=== PATIENT | female | born 1980 | race Caucasian/White ===

== ENCOUNTER 2018-04-04 22:02 | Inpatient (IN) | payer BC ==
[~2018-04-04] VITALS: Wt 68.2 kg
[2018-04-04 23:09] LABS: BASO % 0.2 % (0.0-2.0); EOS % 0.2 % (0-4.0); GRAN # 8.7 (1.4-6.5); GRAN % 74.7 % (42.2-75.2); HEMOGLOBIN 11.6 g/dl (12.5-16.0); LYMPH % 17.2 % (20.0-51.0); MEAN CELL VOLUME 98 fl (80.0-100.0); MEAN CORPUSCULAR HEMOGLOBIN 32 pg (27.0-31.0); MEAN CORPUSCULAR HGB CONC 32 g/dl (33.0-37.0); MEAN PLATELET VOLUME 12.5 fl (7.4-10.4); MONO # 0.8 (0.1-0.6); MONO % 7.2 % (1.7-9.3); PLATELET COUNT 138 K/mm3 (130-400); RED BLOOD COUNT 3.66 M/mm3 (4.10-5.30); REDCELL DISTRIBUTION WIDTH-CV 14.2 % (11.5-14.5)
[2018-04-04 23:13] VITALS: BP 112/88; PULSE 88; TEMP 98.2
[2018-04-04 23:15] VITALS: BP 120/59; PULSE 110
[2018-04-04 23:30] VITALS: BP 105/52; PULSE 106
[2018-04-04 23:45] VITALS: BP 113/58; PULSE 93
[2018-04-05] VITALS (14 sets, daily range): BP systolic 102–222; BP diastolic 56–67; PULSE 55–106; TEMP 97.7–98.2
[2018-04-05] MEDS ORDERED: PRENATAL MVI (05:26)
[2018-04-05] MEDS ORDERED: TIROSINT75 MC1 PO (05:26)
[2018-04-06 07:45] VITALS: BP 101/58; PULSE 77; TEMP 98
== END 2018-04-06 11:45 | disposition home or self-care (01) | DRG 774 ==
LOC: LDRO 22:02 → LDR 22:27 → OB 22:27
PROVIDERS: Student in an Organized Health Care Education/Training Program
PROC: 10E0XZZ Delivery of Products of Conception, External Approach (ICD-10-PCS; principal; 2018-04-05)
PROC: 0HQ9XZZ Repair Perineum Skin, External Approach (ICD-10-PCS; 2018-04-05)
DX: O70.0 First degree perineal laceration during delivery (principal); O99.42 Diseases of the circulatory system complicating childbirth; Z3A.39 39 weeks gestation of pregnancy; Z37.0 Single live birth; I34.1 Nonrheumatic mitral (valve) prolapse; O99.284 Endocrine, nutritional and metabolic diseases complicating childbirth; E03.9 Hypothyroidism, unspecified; O99.02 Anemia complicating childbirth; D64.9 Anemia, unspecified
CPT/HCPCS: J2590; J7120

== ENCOUNTER → 2019-03-29 | Outpatient (CLI) | payer OTHER ==
[~2019-03-29] MED LIST: PRENATAL MVI; TIROSINT75 MC1 PO
== END ==
LOC: MC.RAD 14:00
DX: N63.10 Unspecified lump in the right breast, unspecified quadrant (principal)

== ENCOUNTER → 2019-10-18 | Outpatient (CLI) | payer BC | LOC: MC.RAD 09:08 | DX: N63.10 Unspecified lump in the right breast, unspecified quadrant (principal) ==

== ENCOUNTER → 2020-03-05 | Outpatient (CLI) | payer BC ==
[~2020-03-05] MED LIST changes: +B COMPLEX #11 TA1 PO; +IBU600 MG PO; +SLOW FE142 MG PO; +TIROSINT100 MC1 PO
== END ==
LOC: COL.LAB 07:07
DX: O09.523 Supervision of elderly multigravida, third trimester (principal); Z3A.39 39 weeks gestation of pregnancy; Z20.828 Contact with and (suspected) exposure to other viral communicable diseases

== ENCOUNTER 2020-03-11 07:07 | Inpatient (IN) | payer BC ==
[~2020-03-11] VITALS: Ht 172.7 cm; Wt 64.1 kg
[2020-03-11] VITALS (28 sets, daily range): BP systolic 87–124; BP diastolic 39–68; PULSE 66–103; TEMP 97.3–98.6
[~2020-03-11 07:07] MED LIST changes: -B COMPLEX #11 TA1 PO; -IBU600 MG PO; -SLOW FE142 MG PO; -TIROSINT100 MC1 PO
[2020-03-11] MEDS ORDERED: B COMPLEX #11 TA1 PO (07:17)
[2020-03-11] MEDS ORDERED: SLOW FE142 MG PO (08:33)
[2020-03-11] MEDS ORDERED: TIROSINT100 MC1 PO (08:33)
[2020-03-11 08:51] LABS: BASO % 0.5 % (0.0-2.0); EOS % 0.3 % (0-4.0); GRAN # 3.9 (1.4-6.5); GRAN % 64.4 % (42.2-75.2); HEMOGLOBIN 11.4 g/dl (12.5-16.0); LYMPH # 1.6 (1.2-3.4); LYMPH % 25.9 % (20.0-51.0); MEAN CELL VOLUME 101 fl (80.0-100.0); MEAN CORPUSCULAR HEMOGLOBIN 33 pg (27.0-31.0); MEAN CORPUSCULAR HGB CONC 33 g/dl (33.0-37.0); MONO # 0.5 (0.1-0.6); MONO % 8.2 % (1.7-9.3); PLATELET COUNT 134 K/mm3 (130-400); RED BLOOD COUNT 3.43 M/mm3 (4.10-5.30); REDCELL DISTRIBUTION WIDTH-CV 13.3 % (11.5-14.5)
--- NOTE | 2020-03-11 09:18 | NUR ---
Pt and spouse arrive ambulatory to unit at 0713 for scheduled induction of labor. Pt anxious but appropriate, denies leaking of fluid, vaginal bleeding, contractions, and reports good movement. EFM explained and placed, vitals taken. IV started in left forearm, LR started per protocol. Assessment complete, consents discussed and signed. Plan of care discussed. 0800 - Pitocin started per induction protocol. 08 - Dr. Alexander to pt bedside. Plan of care discussed with pt. FHT reviewed. 08 - SVE per Dr. Alexander /-2. AROM at this time, trickle of clear fluid noted. Plan to continue induction as planned.
[2020-03-11 10:22] LABS: HEMATOCRIT 34.5 % (37.0-47.0)
--- NOTE | 2020-03-11 11:12 | NUR ---
1105 - Pt feeling contractions, but states that they are not painful. Pt reports feeling pressure with contractions. SVE /-2, very posterior. Pt repositioned for comfort, warm blanket provided.
--- NOTE | 2020-03-11 11:50 | NUR ---
Pt requesting epidural. Zacarias Jernigan CRNA notified.
--- NOTE | 2020-03-11 11:57 | NUR ---
Zacarias Jernigan CRNA to pt bedside. Pt positioned at side of bed for epidural. SS given at 1205, pt repositioned for comfort. Pt tolerated well.
--- NOTE | 2020-03-11 13:39 | NUR ---
1218 - Pt states she is feeling increased pressure, intermittent variable decelerations with contractions noted. SVE 6-7/90/0. Dr. Alexander notified at 1222. Pt repositioned WL at 1223 for comfort. 1227 - Late deceleration noted with contraction, FHT tracing intermittently. RN to bedside. Pt states at this time she is feeling "a lot of pressure down there and it feels like something is coming out." 1231 - Pt repositioned for SVE. When knees opened, bulging bag noted at vaginal opening. SVE 10/100/+1. Pt repositioned WL with knees together. Pitocin stopped, Dr. Alexander notified at 1232. RN remains at bedside. Hermann King RN of nursery notified, Jules Medina RN notified, Jules Manley, TRENT at bedside. Pt kept calm, encouraged breathing through contractions. 1235 - Pt states she feels more "coming out". Right knee pulled slightly aside, very bulging bag noted coming out of vaginal opening. Pt encouraged to keep knees together and keep breathing through contractions. FHT WHL. 1238 - Pt states she "feels baby coming out". Knees pulled gently aside, head noted at vaginal opening en caul. Head continues coming out with contractions. Sterile gloves donned, head eased out en caul. Pt encouraged to push, rest of delivered with push. BOW ruptures when infant delivered at 1240. Membranes removed from , bulb suction used to remove fluids from mouth and nose and stimulated to cry. Infant wrapped in blankets and placed on mother's abdomen. Care of transferred to Hermann King RN of nursery. At 1242, cord clamped at umbilicus and 1 in away with pean clamp. Father cut cord. Clamped umbilical cord placed on bed. Pt positioned for comfort. 1242 - Dr. Alexander notified of delivery by Jules Medina, FLACA 1248 - Dr. Alexander to pt bedside. Pt legs placed in stirrups, bed broken down. Placenta delivered spontaneously at [address] Alexander, pitocin started per protocol. Superficial perineal laceration repaired by physician. Red robbin used to drain bladder. Pericare provided, pt repositioned for comfort. Ice pack placed on perineum, clean gown and warm blankets provided. Cord blood collected. See physician notes.
--- NOTE | 2020-03-11 15:26 | NUR ---
1510 - Pt up to side of bed, epidural catheter removed. Pt ambulated independently to bathroom, voided. Pericare assisted, clean panties and pad placed, new gown provided. Pt ambulated pushing infant in crib to room. Pt oriented to room, call light at side. Pt denies further needs at this time.
[2020-03-12 07:30] VITALS: BP 104/52; PULSE 89; TEMP 97.7
[2020-03-12] MEDS ORDERED: IBU600 MG PO (09:55)
--- NOTE | 2020-03-12 12:10 | NUR ---
Initial visit; Parents thanked for offering congratulations for the of their daughter and for thanking them for choosing our hospital.
== END 2020-03-12 14:50 | disposition home or self-care (01) | DRG 807 ==
LOC: LDR 07:07 → OB 10:02
PROVIDERS: ADMIT Obstetrics & Gynecology
PROC: 10E0XZZ Delivery of Products of Conception, External Approach (ICD-10-PCS; principal; 2020-03-11)
PROC: 10907ZC Drainage of Amniotic Fluid, Therapeutic from Products of Conception, Via Natural or Artificial Opening (ICD-10-PCS; 2020-03-11)
PROC: 0HQ9XZZ Repair Perineum Skin, External Approach (ICD-10-PCS; 2020-03-11)
DX: O99.284 Endocrine, nutritional and metabolic diseases complicating childbirth (principal); Z37.0 Single live birth; O70.0 First degree perineal laceration during delivery; E03.9 Hypothyroidism, unspecified; Z3A.39 39 weeks gestation of pregnancy
CPT/HCPCS: J2590; J7120

== ENCOUNTER 2021-09-17 14:22 | Emergency (ER) | payer BC ==
[~2021-09-17] VITALS: Ht 172.7 cm; Wt 55.9 kg
[~2021-09-17 14:22] MED LIST changes: +B COMPLEX #11 TA1 PO; +IBU600 MG PO; +SLOW FE142 MG PO; +TIROSINT100 MC1 PO
[2021-09-17 15:03] LABS: BASO % 0.4 % (0.0-2.0); GRAN # 3.6 K/mm3 (1.4-6.5); GRAN % 63.2 % (42.2-75.2); HEMOGLOBIN 11.3 g/dl (12.5-16.0); LYMPH # 1.5 K/mm3 (1.2-3.4); LYMPH % 26.7 % (20.0-51.0); MEAN CELL VOLUME 94 fl (80.0-100.0); MEAN CORPUSCULAR HEMOGLOBIN 31 pg (27-31); MEAN CORPUSCULAR HGB CONC 33 g/dl (33.0-37.0); MEAN PLATELET VOLUME 11.9 fl (7.4-10.4); MONO # 0.5 K/mm3 (0.1-0.6); MONO % 9.3 % (1.7-9.3); PLATELET COUNT 161 K/mm3 (130-400); RED BLOOD COUNT 3.67 M/mm3 (4.10-5.30); REDCELL DISTRIBUTION WIDTH-CV 13.3 % (11.5-14.5)
[2021-09-17 15:05] LABS: HEMATOCRIT 34.3 % (37.0-47.0)
[2021-09-17 15:17] LABS: ANION GAP 8 mmol/L (7-16); BLOOD UREA NITROGEN 10 mg/dL (7-19); CALCIUM 8.6 mg/dL (8.4-10.2); CARBON DIOXIDE 20 mmol/L (22-29); CHLORIDE 110 mmol/L (98-107); CREATININE, serum 0.61 mg/dL (0.57-1.11); GLUCOSE 105 mg/dL (70-99); MAGNESIUM 1.8 mg/dL (1.6-2.6); POTASSIUM 3.7 mmol/L (3.5-4.5); SODIUM 138 mmol/L (136-145)
[2021-09-17 15:26] LABS: TROPONIN-I < 0.010 ng/mL (0.00-0.033)
[2021-09-17] MEDS ORDERED: TOPROL XL 25MG25 MG PO (15:50)
[2021-09-17 16:13] VITALS: BP 109/66; PULSE 105; TEMP 98.1
== END 2021-09-17 16:15 | disposition home or self-care (01) ==
LOC: COL.ER 14:22
PROVIDERS: Student in an Organized Health Care Education/Training Program
DX: I47.1 Supraventricular tachycardia (principal); Z79.82 Long term (current) use of aspirin
CPT/HCPCS: J7030

== ENCOUNTER 2024-05-25 08:29 | Emergency (ER) | payer BC ==
[~2024-05-25] VITALS: Ht 172.7 cm; Wt 66.8 kg
[~2024-05-25 08:29] MED LIST changes: +TOPROL XL 25MG25 MG PO
[2024-05-25 08:37] VITALS: TEMP 98.2
[2024-05-25 09:22] LABS: BASO % 0.6 % (0.0-2.0); EOS # 0.1 K/mm3 (0.0-0.7); EOS % 1.3 % (0.0-4.0); GRAN # 4.7 K/mm3 (1.4-6.5); GRAN % 66.8 % (42.2-75.2); HEMATOCRIT 38.1 % (37.0-47.0); LYMPH # 1.6 K/mm3 (1.2-3.4); MEAN CELL VOLUME 103 fl (80.0-100.0); MEAN CORPUSCULAR HEMOGLOBIN 33 pg (27-31); MEAN CORPUSCULAR HGB CONC 32 g/dl (33.0-37.0); MEAN PLATELET VOLUME 11.6 fl (7.4-10.4); MONO # 0.6 K/mm3 (0.1-0.6); MONO % 7.9 % (1.7-9.3); PLATELET COUNT 142 K/mm3 (130-400); RED BLOOD COUNT 3.69 M/mm3 (4.10-5.30); REDCELL DISTRIBUTION WIDTH-CV 13.8 % (11.5-14.5)
[2024-05-25 09:36] LABS: ALBUMIN 2.9 g/dL (3.5-5.0); BILIRUBIN,TOTAL 0.4 mg/dL (0.2-1.2); CALCIUM 10.1 mg/dL (8.4-10.2); CREATININE, serum 0.68 mg/dL (0.57-1.11); POTASSIUM 3.7 mEq/L (3.5-4.5); TOTAL PROTEIN 6.6 g/dl (6.2-8.1)
[2024-05-25 13:00] VITALS: BP 95/54; PULSE 60
== END 2024-05-25 13:00 | disposition home or self-care (01) ==
LOC: COL.ER 08:29
PROVIDERS: Personal Emergency Response Attendant
DX: O72.1 Other immediate postpartum hemorrhage (principal); O99.893 Other specified diseases and conditions complicating puerperium; R00.1 Bradycardia, unspecified